=== PATIENT | female | born 2000 | race Caucasian/White ===

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

== ENCOUNTER 2023-09-27 22:44 | Emergency (ER) | payer OTHER ==
[~2023-09-27] VITALS: Ht 160 cm; Wt 72.6 kg
[2023-09-27 22:49] VITALS: BP 142/78
[2023-09-28] MEDS ORDERED: CEPH500 PO (00:03)
== END 2023-09-28 00:09 | disposition home or self-care (01) ==
LOC: ER 22:44
DX: T81.49XA Infection following a procedure, other surgical site, initial encounter (principal); Z46.89 Encounter for fitting and adjustment of other specified devices; Z88.0 Allergy status to penicillin; W17.89XA Other fall from one level to another, initial encounter
CPT/HCPCS: 29505; 99282-25

== ENCOUNTER 2025-07-24 22:41 | Emergency (ER) | payer OTHER ==
[~2025-07-24] VITALS: Ht 162.6 cm; Wt 83.0 kg
[~2025-07-24 22:41] MED LIST changes: +CEPH500 PO
[2025-07-25 03:45] VITALS: BP 110/68
== END 2025-07-25 03:44 | disposition home or self-care (01) ==
LOC: ER 22:41
DX: G44.309 Post-traumatic headache, unspecified, not intractable (principal); S09.90XA Unspecified injury of head, initial encounter; V89.2XXA Person injured in unspecified motor-vehicle accident, traffic, initial encounter; Z88.0 Allergy status to penicillin; Z79.899 Other long term (current) drug therapy
CPT/HCPCS: 70450; 99284-25; A9270